=== PATIENT | male | born 1950 | race Caucasian/White ===

== ENCOUNTER → 2017-04-14 | Outpatient (CLI) | payer OTHER ==
[2017-04-14 09:14] LABS: BASO # 0.1 10^3/uL (0.0-0.2); EOS # 0.5 10^3/uL (0.0-0.50); EOS % 7.3 % (0.0-3.0); IMMATURE GRANULOCYTE % 0.8 % (0-0); LYMPH # 1.6 10^3/uL (1.5-4.5); LYMPH % 26.1 % (24.0-44.0); MEAN CORPUSCULAR HEMOGLOBIN 29.9 pg (27.0-33.0); MEAN CORPUSCULAR HGB CONC 33.5 g/dl (32.0-36.5); MEAN CORPUSCULAR VOLUME 89.1 fl (80.0-96.0); MONO # 0.5 10^3/uL (0.0-0.8); MONO % 7.8 % (0.0-5.0); NEUTROPHILS # 3.6 10^3/uL (1.8-7.7); PLATELET COUNT, AUTOMATED 188 10^3/uL (150-450); RED CELL DISTRIBUTION WIDTH 12.1 % (11.5-14.5); WHITE BLOOD COUNT 6.3 10^3/uL (4.0-10.0)
[2017-04-14 09:45] LABS: ALBUMIN 4.2 GM/DL (3.2-5.2); ALBUMIN/GLOBULIN RATIO 1.45 (1.00-1.93); ALKALINE PHOSPHATASE 70 U/L (45-117); ALT/SGPT 25 U/L (12-78); ANION GAP 6 MEQ/L (8-16); AST/SGOT 13 U/L (7-37); BILIRUBIN,TOTAL 0.5 MG/DL (0.2-1.0); BLOOD UREA NITROGEN 16 MG/DL (7-18); CALCIUM LEVEL 8.8 MG/DL (8.8-10.2); CARBON DIOXIDE LEVEL 30 MEQ/L (21-32); CHLORIDE LEVEL 106 MEQ/L (98-107); CHOLESTEROL LEVEL 199 MG/DL (<200); GLOMERULAR FILTRATION RATE > 60.0 (>49); GLUCOSE, FASTING 97 MG/DL (80-110); POTASSIUM SERUM 4.5 MEQ/L (3.5-5.1); SODIUM LEVEL 142 MEQ/L (136-145); THYROXINE (T4) 12.9 UG/DL (4.5-12.0); TOTAL PROTEIN 7.1 GM/DL (6.4-8.2); TRIGLYCERIDES LEVEL 188 MG/DL (<150)
== END ==
LOC: M WUC 08:05
PROVIDERS: ATTEND Nurse Practitioner Adult Health
DX: I25.10 Atherosclerotic heart disease of native coronary artery without angina pectoris (principal); E78.00 Pure hypercholesterolemia, unspecified

== ENCOUNTER → 2017-11-24 | Outpatient (REF) | payer MEDICARE ==
[2017-11-24 11:59] LABS: HEMATOCRIT 47.4 % (42.0-52.0); HEMOGLOBIN 15.6 g/dl (13.5-17.5); MEAN CORPUSCULAR HEMOGLOBIN 30.3 pg (27.0-33.0); MEAN CORPUSCULAR HGB CONC 32.9 g/dl (32.0-36.5); PLATELET COUNT, AUTOMATED 179 10^3/uL (150-450); RED BLOOD COUNT 5.15 10^6/uL (4.30-6.10); RED CELL DISTRIBUTION WIDTH 12.4 % (11.5-14.5); WHITE BLOOD COUNT 7.3 10^3/uL (4.0-10.0)
[2017-11-24 12:21] LABS: ALBUMIN 3.8 GM/DL (3.2-5.2); ALBUMIN/GLOBULIN RATIO 1.31 (1.00-1.93); ALKALINE PHOSPHATASE 66 U/L (45-117); ALT/SGPT 21 U/L (12-78); ANION GAP 8 MEQ/L (8-16); AST/SGOT 12 U/L (7-37); BILIRUBIN,TOTAL 0.5 MG/DL (0.2-1.0); BLOOD UREA NITROGEN 14 MG/DL (7-18); CALCIUM LEVEL 8.6 MG/DL (8.8-10.2); CARBON DIOXIDE LEVEL 28 MEQ/L (21-32); CHLORIDE LEVEL 110 MEQ/L (98-107); CHOLESTEROL LEVEL 161 MG/DL (<200); CHOLESTEROL RISK RATIO 3.285 (<5); FREE T4 0.98 NG/DL (0.76-1.46); GLOMERULAR FILTRATION RATE > 60.0 (>49); GLUCOSE, FASTING 85 MG/DL (70-100); HDL CHOLESTEROL 49 MG/DL (>40); LDL CHOLESTEROL 77.8 MG/DL (<100); NON-HDL-C 112 MG/DL; POTASSIUM SERUM 4.3 MEQ/L (3.5-5.1); SODIUM LEVEL 146 MEQ/L (136-145); THYROID STIMULATING HORMONE 0.656 uIU/ML (0.358-3.740); TOTAL PROTEIN 6.7 GM/DL (6.4-8.2); TRIGLYCERIDES LEVEL 171 MG/DL (<150)
== END ==
LOC: M SFHCPLAZ 08:08
DX: E78.5 Hyperlipidemia, unspecified (principal); E55.9 Vitamin D deficiency, unspecified
CPT/HCPCS: 84443

== ENCOUNTER → 2018-07-13 | Outpatient (CLI) | payer MEDICARE ==
--- NOTE | 2018-07-13 18:36 | REP ---
Noncontrast low-dose screening chest CT: History: Tobacco use. Lung cancer screening. No comparison CT study. Comparison chest x-ray: December 19, 2016. CT findings: Preliminary digital display mechanic radiograph is unremarkable. There is mild biapical pleuroparenchymal scarring. There are two small bullae in the right lung apex. There is no evidence of pulmonary mass lesion or significant pulmonary nodule. Vascular calcification is seen in the left coronary artery distribution. This may be a stent. Study is otherwise unremarkable. Impression: Lung RADS category 1 negative study. Repeat screening recommended 1 year. Electronically Signed by George Burt MD 07/13/2018 10:32 P
== END ==
LOC: M RAD 13:08
PROVIDERS: ATTEND Internal Medicine Cardiovascular Disease
DX: F17.210 Nicotine dependence, cigarettes, uncomplicated (principal); R06.09 Other forms of dyspnea

== ENCOUNTER → 2018-11-15 | Outpatient (CLI) | payer MEDICARE ==
--- NOTE | 2018-11-16 07:15 | REP ---
ABDOMINAL SERIES: Supine and erect views of the abdomen demonstrate no free air and no evidence of bowel obstruction. No dilated small bowel loops are seen. There are phleboliths in the pelvis. There are mild degenerative changes of the spine. An accompanying view of the chest demonstrates no acute infiltrate. The heart is normal in size. IMPRESSION: No free air or obstruction. Electronically Signed by Edmund Coyle MD 11/16/2018 08:53 A
== END ==
LOC: M WUC 18:50
PROVIDERS: ATTEND Physician Assistant
DX: R10.84 Generalized abdominal pain (principal)

== ENCOUNTER → 2019-11-04 | Outpatient (CLI) | payer MEDICARE ==
--- NOTE | 2019-11-05 10:44 | REPVR ---
PROCEDURE INFORMATION: Exam: CT Maxillofacial Without Contrast, Sinus Exam date and time: 11/04/2019 2:59 PM Age: 69 years old Clinical indication: Sinusitis; Type not specified; Additional info: Allergic rhinitis, polyp of nasal cavity TECHNIQUE: Imaging protocol: CT Maxillofacial without contrast. Focus on the sinuses. Radiation optimization: All CT scans at this facility use at least one of these dose optimization techniques: automated exposure control; mA and/or kV adjustment per patient size (includes targeted exams where dose is matched to clinical indication); or iterative reconstruction. COMPARISON: No relevant prior studies available. FINDINGS: Frontal sinuses: The right frontal sinus demonstrates mild chronic mucosal disease. The left is clear. Ethmoid air cells: There is moderate opacification of multiple ethmoid air cells bilaterally. Sphenoid sinuses: Normal. No air-fluid levels. Maxillary sinuses: Mild chronic mucosal disease involves the bilateral maxillary sinuses. Orbits: The globes appear grossly intact, and no definite intraorbital hematoma is identified. Mastoid air cells: The mastoid air cells are clear. Nasal cavity/Septum: There is very mild leftward deviation of the nasal septum. The ostiomeatal units are obstructed by mucosal disease bilaterally. There is some ill-defined asymmetric soft tissue density along the left middle nasal turbinate. Brain: The visualized intracranial structures appear grossly unremarkable. Soft tissues: See "Frontal sinuses" finding. Bones/joints: The temporomandibular joints are normally aligned. The orbital floors and lamina papyracea are intact. IMPRESSION: 1. Ill-defined asymmetric soft tissue density along the left middle nasal turbinate. 2. Chronic paranasal sinus disease as described. 3. Ostiomeatal units obstructed by mucosal disease bilaterally. 4. Very mild leftward nasal septal deviation. Electronically signed by: Eder Wu On 11/05/2019 10:44:19 AM
== END ==
LOC: M RAD 14:48
PROVIDERS: ATTEND Specialist
DX: J30.9 Allergic rhinitis, unspecified (principal); J33.0 Polyp of nasal cavity

== ENCOUNTER → 2020-07-10 | Outpatient (REF) | payer MEDICARE | LOC: M PLALAB 08:30 | PROVIDERS: ATTEND Family Medicine | DX: Z13.1 Encounter for screening for diabetes mellitus (principal) ==

== ENCOUNTER → 2022-06-07 | Outpatient (CLI) | payer MEDICARE | LOC: M PLAIMG 10:37 | PROVIDERS: ATTEND Physician Assistant | DX: K59.00 Constipation, unspecified (principal) ==